=== PATIENT | male | born 1965 | race Caucasian/White ===

== ENCOUNTER 2017-04-14 08:36 | Day surgery (SDC) | payer OTHER ==
[2017-04-09 15:15] VITALS: BMI 27.9
[2017-04-14] MEDS ORDERED: PROPOFOL 20 ML ONE ×2 (08:38)
[2017-04-14 10:41] VITALS: PULSE 61; TEMP 98
[2017-04-14 10:56] VITALS: BP 112/61
== END 2017-04-14 11:20 | disposition home or self-care (01) ==
LOC: FASU-ENDO 08:36
PROVIDERS: ATTEND Internal Medicine Gastroenterology
PROC: 0DJD8ZZ Inspection of Lower Intestinal Tract, Via Natural or Artificial Opening Endoscopic (ICD-10-PCS; principal; 2017-04-14 10:11)
DX: Z12.11 Encounter for screening for malignant neoplasm of colon (principal)